=== PATIENT | male | born 1945 | race African-American/Black ===

== ENCOUNTER 2017-08-18 16:51 | Emergency (ER) | payer OTHER, MEDICAID ==
[~2017-08-18] VITALS: Ht 162.6 cm; Wt 93.0 kg
[~2017-08-18 16:51] MED LIST: [UNRECOGNIZED DRUG - REMARK]
[2017-08-18 17:05] VITALS: BP 131/83
== END 2017-08-18 19:00 | disposition left against medical advice (07) ==
LOC: ER 16:51
DX: R09.82 Postnasal drip (principal); Z53.21 Procedure and treatment not carried out due to patient leaving prior to being seen by health care provider